=== PATIENT | female | born 1980 | race Two or more races ===

== ENCOUNTER → 2024-12-23 | Outpatient (CLI) | payer MEDICAID, SELFPAY ==
--- NOTE | 2024-12-23 08:00 | XR_ITS ---
Examination: Screening digital mammography, bilateral Computer aided detection 3-D breast Tomosynthesis, bilateral Date and time of exam: December 23, 2024 0749 hours No priors available for comparison Indication: Screening Technique: Nonmagnified MLO, CC views of the breasts to been obtained, reconstructed from 3-D Tomosynthesis images. R2 computer aided detection program utilized for evaluation of suspicious masses and/or abnormal calcifications. 3-D Tomosynthesis images obtained. Findings: The breasts are heterogeneously dense, which may obscure small masses Suspicious focus microcalcifications upper outer left breast 25 mm focal asymmetry upper left breast MLO view, 7 cm from the nipple 4 mm focal asymmetry nipple level left breast CC view Impression: BI-RADS Category 0: Incomplete: Need additional imaging evaluation Suspicious focus microcalcifications upper outer left breast, recommend magnification spot compression views follow-up 25 mm focal asymmetry upper left breast MLO view, 7 cm from the nipple, recommend follow-up spot tomographic views upper outer quadrant left breast 4 mm focal asymmetry nipple level left breast, CC view, recommend follow-up spot tomographic views of this nodule Recommend bilateral breast sonography follow-up
== END | disposition home or self-care (01) ==
LOC: CDIM 07:40
PROVIDERS: Referring Provider Obstetrics & Gynecology; Visit Provider Obstetrics & Gynecology
DX: Z12.31 Encounter for screening mammogram for malignant neoplasm of breast (principal); R92.0 Mammographic microcalcification found on diagnostic imaging of breast; N64.89 Other specified disorders of breast
CPT/HCPCS: 77063; 77067

== ENCOUNTER → 2025-03-08 | Outpatient (CLI) | payer MEDICAID, SELFPAY ==
--- NOTE | 2025-03-08 10:30 | XR_ITS ---
Examination: Breast ultrasound complete, bilateral Date and time of exam: March 08, 2025 1001 hours INDICATIONS: Mammogram December 23, 2024 grouped microcalcifications upper outer left breast 25 mm focal asymmetry upper left breast MLO view 4 mm focal asymmetry nipple level left breast CC view Technique: Real-time grayscale ultrasonographic imaging bilateral breasts, including all 4 quadrants as well as nipple retroareolar and axillary regions. Findings: Sonographic images right breast 7:00 nodule 10 x 8 mm hyperechoic Sonographic images left breast 2:00 nodule circumscribed 13 x 9 mm 11:00 nodule circumscribed 5 x 4 mm IMPRESSION: BI-RADS Category 3: Probably benign findings One additional 6 month bilateral breast sonography follow-up is needed to document stability of nodules described above
--- NOTE | 2025-03-08 11:30 | XR_ITS ---
Examination: Diagnostic digital mammography, unilateral, left Computer aided detection 3-D breast Tomosynthesis, unilateral Date and time of exam: March 08, 2025 1024 hours INDICATIONS: Mammogram every 21/11/2024 suspicious microcalcifications upper outer left breast Technique: Nonmagnified MLO, CC views of the left breast have been obtained, reconstructed from 3-D Tomosynthesis images. R2 computer aided detection program utilized for evaluation of suspicious masses and/or abnormal calcifications. 3-D Tomosynthesis images obtained. Findings: The breast is heterogeneously dense, which may obscure small masses Benign calcifications. No suspicious masses Impression: BI-RADS category 2: Benign findings Recommend yearly follow-up mammography Please see the left breast sonogram report today requesting 6 month bilateral breast sonography follow-up
== END | disposition home or self-care (01) ==
PROVIDERS: PCP Obstetrics & Gynecology; Referring Provider Obstetrics & Gynecology; Visit Provider Obstetrics & Gynecology
DX: R92.323 Mammographic fibroglandular density, bilateral breasts (principal); R92.1 Mammographic calcification found on diagnostic imaging of breast; N63.13 Unspecified lump in the right breast, lower outer quadrant; N63.21 Unspecified lump in the left breast, upper outer quadrant; N63.22 Unspecified lump in the left breast, upper inner quadrant
CPT/HCPCS: 76641; 77061; 77065; G0279

== ENCOUNTER 2025-07-10 04:47 | Emergency (ER) | payer MEDICAID, SELFPAY ==
[2025-07-10 04:48] VITALS: BMI 33.5
[2025-07-10 04:53] VITALS: BP 133/83; PULSE 98; RESP 19; TEMP 36.4; O2SAT 96
--- NOTE | 2025-07-10 05:11 | XR_ITS ---
Examination: Pelvic ultrasound, transabdominal, complete Technique: Transabdominal ultrasound of the pelvis performed using grayscale imaging Date and time of exam: July 10, 2025, 0523 hrs. Indications: Heavy vaginal bleeding beginning 3 days ago. Findings: Uterus 9.1 cm endometrial stripe 1.5 cm. No uterine mass or intrauterine gestation. Ovaries obscured by bowel gas. Impression: No uterine mass or intrauterine gestation.
--- NOTE | 2025-07-10 05:11 | XR_ITS ---
Examination: Lumbar spine 3 views Technique: AP lateral coned lateral lower lumbar spine 3 views Date and time: July 10, 2025, 0516 hrs. Indications: Lower back pain today. Findings: Straightening normal lumbar lordosis. Early degenerative disc disease L5-S1, L3-L4 No acute lumbar fracture No spondylolisthesis Impression: Early degenerative disc disease L5-S1, L3-L4.
--- NOTE | 2025-07-10 05:12 | PD.EDRME ---
Rapid Medical Screening Exam [facility] Arrival date/time: 07/10/25 04:47 This is a case of 45-year-old female with no medical history came in in the emergency room due to vaginal bleeding on and off for 2 months worsening of the symptoms today now with blood clots thus the patient decided to sought consult here in the emergency room patient have history of bilateral tubal ligation patient also have lower back pain but no injury no trauma denies any numbness weakness tingling sensation denies any incontinence to urine or stool Chief Complaint: Vaginal Bleeding Time Seen by Provider: 07/10/25 05:11 Vital signs: Vital Signs Temperature 97.6 F 07/10/25 04:53 Pulse Rate 98 07/10/25 04:53 Respiratory Rate 19 07/10/25 04:53 Blood Pressure 133/83 H 07/10/25 04:53 Pulse Oximetry (%) 96 07/10/25 04:53 Oxygen Delivery Method Room Air 07/10/25 04:53
--- NOTE | 2025-07-10 05:45 | PC.NURSE ---
PT ARRIVED TO ED FOR 3X DAYS OF VAGINAL BLEEDING. PT STATES THAT THE BLEEDING STARTED APPROX THURSDAY. PT WENT THROUGH [employer] AND STATES THE BLOOD IS BRIGHT RED W/ CLOTS. PT HAS A HISTORY OF TUBAL LIGATION AND HAS NOT GONE THROUGH MENOPAUSE. PT STATED THAT SHE HAS NOT HAD A REGULAR PERIOD SINCE MAY OF 2025. PT STATES THAT SHE GETS HOT FLASHES AND FEEL WEAK.
[2025-07-10 06:06] LABS: Basophils # (Auto) 0.0 Thou/mm3 (0.0-0.2); Basophils % (Auto) 0 % (0-2.5); Eosinophils # (Auto) 0.1 Thou/mm3 (0.0-0.5); Eosinophils % (Auto) 2 % (0-10); Hematocrit 43.1 % (36.0-46.0); Hemoglobin 15.1 g/dL (12.0-16.0); Immature Granulocytes Auto 0.01 Thou/mm3 (0.00-0.00); Lymphocytes # (Auto) 1.4 Thou/mm3 (1.0-4.8); Lymphocytes % (Auto) 17 % (10-50); Mean Corpuscular HGB Conc 35.0 g/dl (31.0-37.0); Mean Corpuscular Hemoglobin 30.3 pg (25.0-35.0); Mean Corpuscular Volume 86 fL (80-100); Monocytes # (Auto) 0.4 Thou/mm3 (0.0-0.8); Monocytes % (Auto) 5 % (0-12); Neutrophils # (Auto) 6.2 Thou/mm3 (1.8-7.7); Neutrophils % (Auto) 76 % (37-80); Nucleated Red Blood Cell # 0.00 Thou/mm3 (0.00-0.00); Nucleated Red Blood Cell % 0 /100 WBC (0); Platelet Count 350 Thou/mm3 (140-440); RDW Standard Deviation 39.4 fL (36.4-46.3); Red Blood Count 4.99 Miln/mm3 (4.00-5.20); White Blood Count 8.1 Thou/mm3 (3.6-11.0)
[2025-07-10 06:16] LABS: Alanine Aminotransferase 17 U/L (10-49); Albumin, Serum 4.3 gm/dL (3.5-5.0); Albumin/Globulin Ratio 1.3 (1.2-2.2); Alkaline Phosphatase 96 U/L (46-116); Anion Gap 11 (7-16); Aspartate Amino Transferase < 10 U/L (0-34); BUN/Creatinine Ratio 19 Ratio (12-20); Beta HCG,Quantitative < 0 mIU/mL (<5.0); Bilirubin,Total 1.4 mg/dL (0.3-1.2); Blood Urea Nitrogen 17 mg/dL (9-23); Calcium 9.1 mg/dL (8.3-10.6); Calcium (Corrected) 9.1 mg/dL (8.5-10.1); Carbon Dioxide 21.9 mMol/L (20.0-31.0); Chloride 106 mMol/L (98-107); Creatinine (Component) 0.9 mg/dL (0.6-1.3); Estimated Creatinine Clearance 78.1 mL/min (>60); Globulin 3.2 gm/dL (2.3-3.5); Glucose 109 mg/dL (74-106); Lipase 35 U/L (12-53); Osmolality,Calculated 280 (275-295); Potassium 3.7 mMol/L (3.4-5.1); Sodium 139 mMol/L (136-145); Total Protein 7.5 gm/dL (5.7-8.2); eGFR > 60 See Note
--- NOTE | 2025-07-10 06:28 | PRELIM_ITS ---
Pelvic ultrasound (transabdominal). July 10, 2025 at 0523 hours Clinical history: Vaginal bleeding. Technique: Real-time, grayscale, transabdominal pelvic ultrasound was performed using Duplex scanning including arterial inflow, venous outflow, color and spectral Doppler. Comparison: No prior study is available for comparison. Findings: Limited exam. The uterus is 9.1 x 5.6 x 7.9 cm. Endometrium is 1.5 cm thick. The ovaries are not identified. There is no adnexal cyst or mass. There is no free fluid. Impression: Limited exam. No acute process. Consider transvaginal exam for more sensitive evaluation. Report Electronically Signed By: Mendez Zurita 07/10/2025 6:28:12 AM [EST]
--- NOTE | 2025-07-10 06:32 | PD.EDVAGBL ---
ED OB Contraction Preg RMI/HPI General Chief complaint: Vaginal Bleeding Stated complaint: HEAVY VAGINAL BLEEDING Time Seen by Provider: 07/10/25 05:11 Arrival date/time: 07/10/25 04:47 RME / HPI RME / HPI Narrative: 07/10/25 04:47 This is a case of 45-year-old female with no medical history came in in the emergency room due to vaginal bleeding on and off for 2 months worsening of the symptoms today now with blood clots thus the patient decided to sought consult here in the emergency room patient have history of bilateral tubal ligation patient also have lower back pain but no injury no trauma denies any numbness weakness tingling sensation denies any incontinence to urine or stool DR. ELLE CADENA ED EVALUATION 06:32 45-year-old female who without significant medical history presents to the emergency department with several days of heavy vaginal bleeding. Patient states her menses are usually regular and once a month. She states she had a normal period in May. In June the patient only had some spotting and thought that was strange. This month she has had 2 to 3 days of heavy bleeding. Patient states she is going through a pad roughly every 2 hours. Every time she has had bleeding like this in the past she has been . Patient is status post bilateral tubal ligation, has been feeling somewhat lightheaded, feels anxious and concerned about the amount of bleeding. Related Data Home Medications ?Medication ?Instructions ?Recorded ?Confirmed lisinopril 20 1 tab PO DAILY 10/29/21 02/18/22 mg-hydrochlorothiazide 12.5 mg tablet Previous Rx's ?Medication ?Instructions ?Recorded medroxyprogesterone 10 mg tablet 10 mg PO QDAY Dysfunctional 07/10/25 (Provera) uterine bleeding 10 days #10 tabs Allergies Allergy/AdvReac Type Severity Reaction Status Date / Time No Known Allergies Allergy Verified 07/10/25 04:49 Course Quality Measures none Orders Category Date Time Status Insert IV NOW Care 07/10/25 05:37 Completed Orthostatic Vitals NOW Care 07/10/25 07:34 Completed US pelvic complete Stat Exams 07/10/25 05:11 Completed XR lumbar spine 2-3V Stat Exams 07/10/25 05:11 Completed Beta HCG,Quantitative Stat Lab 07/10/25 05:40 Completed CBC Stat Lab 07/10/25 05:40 Completed Comprehensive Metabolic Panel Stat Lab 07/10/25 05:40 Completed Lipase Stat Lab 07/10/25 05:40 Completed Urinalysis Stat Lab 07/10/25 06:42 Completed Acetaminophen Tab [Tylenol ES Tab] Med 07/10/25 06:31 Discontinued 1,000 mg PO X1 ONE Sodium Chloride 0.9% 1000 ml [Ns] 1,000 ml Med 07/10/25 06:31 Discontinued IV 999 mls/hr Vital Signs Vital signs: Vital Signs Temperature 97.6 F 07/10/25 04:53 Pulse Rate 98 07/10/25 04:53 Respiratory Rate 19 07/10/25 04:53 Blood Pressure 133/83 H 07/10/25 04:53 Pulse Oximetry (%) 96 07/10/25 04:53 Oxygen Delivery Method Room Air 07/10/25 04:53 Vaginal Bleeding MDM Narrative MDM Narrative: This section includes all my notes and documentations, including HPI, PE, and ED course. Chau Sainz MD HPI: 45-year-old female with no significant medical history arrived by private vehicle for chief complaint of irregular periods x 2 months with heavy vaginal bleeding now. Patient denies dyspnea on exertion, lightheadedness or presyncopal sensation when standing, difficulty speaking or walking. Ms. ROS: All negative except as documented in HPI. Physical Exam: GENERAL APPEARANCE: alert and oriented x 4, well-developed, well-nourished, appears slightly anxious. VITALS: All vitals were reviewed patient remained stable and normal throughout. HEENT: Normocephalic, atraumatic; pupils equal, round, reactive to light; EOMI; mucous membranes pink, moist; oropharynx clear NECK: Supple LUNGS: CTABL; no wheezes, no rales, no rhonchi HEART: Tachycardic, rate 120s on telemetry; normal S1, S2; no murmurs ABDOMEN: non tender, non distended; normal BS; soft EXTREMITIES: atraumatic; no edema NEUROLOGIC: awake; alert and oriented x4; cranial nerves II-XII grossly intact; no focal sensory or motor deficits, able to stand and walk without difficulty SKIN: warm, dry, normal color; no rashes Plan: Blood works been ordered as well as L-spine films and pelvic ultrasound, blood work and urine. I have ordered a liter of normal saline as well. We will continue to monitor this patient closely and will reevaluate in light of the test results. Differential includes: Ectopic , molar , incomplete miscarriage, complete miscarriage, menopausal bleeding I reviewed all diagnostic test results. My interpretation of the pelvic ultrasound: No IUP. My interpretation of the L-spine films: No fractures or dislocations My interpretation of the labs: Patient's H&H is 15/43, no leukocytosis, basically normal chemistries, patient has hematuria and is not . At this point, diagnoses include: Dysfunctional uterine bleeding, likely patient is menopausal. Treatment here included: A gram of Tylenol and 1000 mL normal saline bolus Consults: I called and spoke with Dr. Patel ([employer] on-call for the ER). We discussed the patient's case in detail. She recommended Provera 10 mg x 10 days Plan is to discharge the patient with instructions to follow-up with her [employer] doctor, if not I will give her contact information for Dr. Patel ([employer] on-call for the ER). Patient to follow-up within the next several days. Strict return instructions given I have answered all the patient's questions and discussed the outpatient plan with her and she voiced understanding and agreement. Patient data External records reviewed:: [facility] previous records Clinical information provided by:: patient Social determinants that could affect healthcare access:: none Patient has the following chronic illnesses:: HTN How is presenting disease/condition affected by chronic disease/condition?: uneffected by Evaluation data The following diagnostics were reviewed and interpreted by me:: lab results and radiology exam(s) Lab and/or radiology exams considered but not ordered:: None Interpretation Summary: See [facility] Medications / Prescriptions Medications or Prescriptions considered but not ordered:: None Medication administrations:: Medication Administration History Discontinued Medications Acetaminophen (Acetaminophen 500 Mg Tablet) 1,000 mg PO X1 ONE Stop: 07/10/25 06:32 Last Admin: 07/10/25 06:38 Dose: 1,000 mg Documented By: MERY Sodium Chloride (Ns) 1,000 mls @ 999 mls/hr IV .Q1H1M ONE Stop: 07/10/25 07:31 Last Infusion: 07/10/25 07:40 Dose: Infused Documented By: Admin: 07/10/25 06:39 Dose: 999 mls/hr Documented By: MERY See [facility] Consultations Consultation(s) initiated? (list below): Yes Consultation #1 (Physician, Specialty, Details): I spoke with OBGYN Dr. Patel as noted above. Diagnosis Vaginal Bleeding Differential Diagnosis: dysfunctional uterine bleeding, incomplete , ectopic without intrauterine and vaginal bleeding Most likely diagnosis given after review of the tests above:: Dysfunctional uterine bleeding Admission Indicated Admission indicated?: not indicated Admission Request Was there a request for admission?: No Disposition Plan Disposition Plan: Discharge Discharge Attestation Discharge Attestation: The patient and all family members were given an opportunity to ask questions and understood the discharge instructions. Discharge instructions specifically effects, indications for sooner follow up or return to the emergency department, and the expected course of current diagnosis. Patient condition: Stable Discharge Plan Plan Patient Disposition: HOME (Self Care) Discharge Disposition comment: Stable for discharge home Patient condition on transfer: Stable Prescriptions/Referrals Prescriptions/Med Rec: New medroxyprogesterone [Provera] 10 mg tablet 10 mg PO QDAY 10 Days Qty: 10 0RF No Action lisinopril-hydrochlorothiazide 20-12.5 mg Tablet 1 tab PO DAILY Referrals: Lc Castillo MD [Primary Care Provider, [employer]] - In 1 week Problem List Clinical Impression: Dysfunctional uterine bleeding Patient/Caregiver Discharge Instructions Discharge Activity: activity as tolerated Other Activity Instructions:: As tolerated Diet Instructions: No restrictions Education Materials: ED Dysfunctional Uterine Bleeding Additional Instructions: Today you were seen in the emergency department for an unusually heavy period. You are not and all your blood work is basically normal. This is very reassuring. Your vital signs were stable and normal as well. I believe you may be experiencing the beginnings of menopause. I have written a prescription for a medicine called Provera. You should take 1 pill every day for 10 days and this may decrease the bleeding. If you have any ongoing problems or any worsening in any way please return to the ER right away and we will help you. Otherwise you should follow-up with your primary [employer] within the next several days Print Language: Malay Stand Alone Forms: Isabelle Award Info., Patient Portal Info Letter
[2025-07-10] MEDS: ACETAMINOPHEN 500 MG TABLET 1000 MG PO (06:38)
[2025-07-10] MEDS: SODIUM CHLORIDE 0.9% 1000 ML 1,000 ML 999 ML IV (06:39)
[2025-07-10 07:03] LABS: Collection Type, Urine Clean Catch
[2025-07-10 07:11] VITALS: BP 148/82; PULSE 92; RESP 16; O2SAT 100
[2025-07-10 07:18] LABS: Bilirubin,Urine 1+ (Negative); Blood,Urine 3+ (Negative); Glucose, Urine Negative (Negative); Ketones,Urine 1+ (Negative); Leukocyte Esterase,Urine Positive (Negative); Nitrite,Urine Negative (Negative); PH,Urine 6.0 (5.0-7.0); Protein,Urine 2+ (Neg - Trace); RBC,Urine 5840 /hpf (0-3); Specific Gravity,Urine 1.036 (1.001-1.035); Squamous Epithelial Cell,Urine 4 /hpf (0-5); Urobilinogen,Urine 2.0 mg/dL (0.0-1.0); WBC,Urine 21 /hpf (0-5)
[2025-07-10 08:18] LABS: Clarity,Urine Turbid (Clear/Hazy); Color,Urine Yellow (Lt Yel-Yel)
[2025-07-10 09:00] VITALS: BP 146/82; PULSE 87; RESP 18; O2SAT 96
== END 2025-07-10 09:01 | disposition home or self-care (01) ==
PROVIDERS: Nurse Practitioner Family; Emergency Provider Emergency Medicine; PCP Obstetrics & Gynecology
DX: N93.8 Other specified abnormal uterine and vaginal bleeding (principal); I10 Essential (primary) hypertension
CPT/HCPCS: 36415; 72100; 76856; 80053; 81001; 83690; 84702; 85025; 96360; 99283; J7030; A9270